=== PATIENT | female | born 1935 | race Caucasian/White ===

== ENCOUNTER 2016-08-23 07:13 | Day surgery (SDC) | payer MEDICARE, BC ==
[~2016-08-23] VITALS: Ht 170.2 cm; Wt 80.6 kg
--- NOTE | ~2016-08-23 | OR ---
PATIENT'S NAME: FE PEREZ [facility] AGE: 80 Y [address] ROOM: [address] [address] [place] [facility] [place]: 08/23/2016 OR/Procedure Report DISCHARGE DATE: 08/24/2016 FAMILY PHYSICIAN: Lisa Mcfarland MD ATTENDING PHYSICIAN: Stephan Mayo SURGEON: Stephan Mayo MD MILLED LUMBER GRADER: Vandana Altamirano PA-C. DATE OF PROCEDURE: 08/23/2016 PREOPERATIVE DIAGNOSIS: Infiltrating ductal carcinoma of left breast, status post right breast lumpectomy. POSTOPERATIVE DIAGNOSES: 1. Infiltrating ductal carcinoma of right breast. 2. Negative left axillary sentinel lymph node on touch prep. PROCEDURES PERFORMED: 1. 5 mL Lymphazurin blue dye injection in left periareolar location for lymphoscintigraphy. 2. Left axillary sentinel lymph node biopsy. 3. Left simple mastectomy. ANESTHESIA: General. ESTIMATED BLOOD LOSS: 100 mL. SPECIMEN: Left axillary sentinel lymph node in left breast. INDICATION: The patient is a pleasant 80-year-old young lady, who had a 2 cm mass developed in the upper inner quadrant of her left breast. Dr. Mcfarland performed excisional biopsy. Margins were grossly negative. Infiltrating ductal carcinoma was noted and the patient chose after surgical discussion to undergo breast removal. We discussed the procedure, benefits, and risks including that of sentinel lymph node possible axillary dissection. DESCRIPTION OF PROCEDURE: After informed consent, the patient was taken to the operating room. After general endotracheal anesthesia, the patient's left breast periareolar location was prepped with alcohol and 5 mL Lymphazurin blue dye was injected for lymphoscintigraphy. We then prepped and draped the left breast and axilla, anterior chest into the sterile field. Due to the incision was in the upper outer quadrant, we had a marked elliptical incision centered to include this previous incision within our specimen. We created our superior skin flap up to the the breast tissue from the subcutaneous tissue all the way up to the infraclavicular region. We then went lateral into the left axilla, used the NeoGamma detector and identified a PATIENT'S NAME: FE PEREZ [facility] AGE: 80 Y [address] [address] [place] [facility] [place]: 08/23/2016 OR/Procedure Report DISCHARGE DATE: 08/24/2016 FAMILY PHYSICIAN: Lisa Mcfarland MD ATTENDING PHYSICIAN: Stephan Mayo radioactive hot area. We sharply dissected down and identified blue lymphatic lymph channel leading to a blue lymphatic lymph node. We next removed the sentinel lymph node and checked counts compared to residual background counts and they were less than 10%. There was no other gross adenopathy palpable. Next, we proceeded with a completion left mastectomy. We created inferior skin line and dissected the subcutaneous tissue down to the inframammary fold. We then took the breast off the pectoralis fascia. We did not encounter any communication of the previous biopsy cavity to the fascia. We took it off the pectoralis fascia all the way to the pectoralis major and minor muscle. We took out the tail of Matt in block. The wound was irrigated and electrocautery 3-0 silks used to obtain hemostasis. We placed a Migue-Benitez drain underneath the skin flaps and closed the subcutaneous tissue with 3-0 Vicryl and skin closed with subcuticular 4-0 Vicryl. Steri-Strips and sterile dressings applied. The patient tolerated the procedure well and transferred to recovery in stable condition. STEPHAN MAYO MD WTS/modl /[id number] d: 09/04/16 1311 t: 09/25/16 1001, OPERATIVE SUMMARY
[~2016-08-23 07:13] MED LIST: ASPIRIN LO-DOSE81 MG PO; HYZAAR 50-12.51 EACH PO; LUTEIN6 M1 PO; THERA-VITE W/ B1 TAB PO; VOLTAREN75 MG PO
[2016-08-23 07:50] LABS: BASOPHIL % 0.6 %; EOSINOPHIL # 0.2 K/uL (0.0-0.5); EOSINOPHIL % 4.1 %; HEMATOCRIT 45.1 % (33.0-46.0); HEMOGLOBIN 14.8 g/dL (10.0-15.0); IMMATURE GRANULOCYTE % 0.2 %; LYMPHOCYTE # 1.7 K/uL (0.8-4.0); LYMPHOCYTE % 31.4 %; MCH 29.2 pg (27.0-34.0); MCHC 32.8 gm/dL (32.0-36.5); MCV 89.1 fl (83.0-98.0); MONOCYTE # 0.6 K/uL (0.0-1.0); MONOCYTE % 10.2 %; MPV 10.3 fl (9.4-12.4); NEUTROPHIL # (ANC) 2.9 K/uL (1.8-7.8); NEUTROPHIL % 53.5 %; NRBC % 0 /100WBC (0-0.00); PLATELET COUNT 166 K/uL (150-450); RBC 5.06 M/uL (3.50-5.50); RDW-CV 13.3 % (11.9-14.6); WBC 5.4 K/uL (4.0-11.0)
--- NOTE | 2016-08-23 16:57 | NUR ---
Significant Event: PT ARRIVED FROM PACU AT 1350. L SIMPLE MASTECTOMY, L AXILLARY SENTINAL LYMPH NODE. LIMB ALERT TO L ARM. INCISION TO L CHEST, DRESSING D/I. ROSE DRAIN- 30ML OUTPUT. POST OP VSS, TITRATED TO ROOM AIR. PT RATING PAIN 4/10 AND TOLERABLE. 1 TAB NORCO GAVE AT 1634. TOLERATED CLEAR LIQUDS, DIET ADVANCED TO REGULAR. IV SALINE LOCKED. PT AMBULATED IN WRAY WITH SBA X3 LAPS. IS AT BEDSIDE. Follow up: CONTINUE TO MONITOR
--- NOTE | 2016-08-24 02:50 | NUR ---
SIGNIFICANT EVENT: Patient is alert & oriented. VSS on RA. 45 mL out of ROSE. Bandages to L) chest remain C/D/I. BP: 126 to 167 over 58 to 72, P: 65 to 74, RR 14 to 20, 96 to 97 Sats onRA. SBA to BR/ambulate in varela. States pain in surgical sites to be tolerable, refuses pain meds. Regular diet - ate all dinner. Pleasant and cooperative with cares.
[2016-08-24 05:36] LABS: BASOPHIL % 0.2 %; EOSINOPHIL % 0.1 %; HEMATOCRIT 39.1 % (33.0-46.0); IMMATURE GRANULOCYTE % 0.3 %; LYMPHOCYTE # 1.7 K/uL (0.8-4.0); LYMPHOCYTE % 17.4 %; MCH 29.2 pg (27.0-34.0); MCHC 33.2 gm/dL (32.0-36.5); MCV 87.9 fl (83.0-98.0); MONOCYTE # 0.9 K/uL (0.0-1.0); MONOCYTE % 8.8 %; MPV 10.4 fl (9.4-12.4); NEUTROPHIL % 73.2 %; NRBC % 0 /100WBC (0-0.00); PLATELET COUNT 160 K/uL (150-450); RBC 4.45 M/uL (3.50-5.50); RDW-CV 13.2 % (11.9-14.6); WBC 9.6 K/uL (4.0-11.0)
[2016-08-24 05:49] LABS: ANION GAP 13.9 (10.0-19.0); BLOOD UREA NITROGEN 12 mg/dL (6-24); CALCIUM 8.5 mg/dL (8.5-10.5); CHLORIDE 108 mMol/L (96-110); CO2 24 mMol/L (22-32); CREATININE 0.7 mg/dL (0.5-1.1); ESTIMATED GFR (MDRD EQUATION) > 60; POTASSIUM 3.9 mMol/L (3.7-5.1); SODIUM 142 mMol/L (135-145)
[2016-08-24] MEDS ORDERED: NORCO 5-325 TA1 EACH PO (12:08)
--- NOTE | 2016-08-24 12:14 | NUR ---
D: Orders received for the patient to go home today with family. I: Dismissal instructions were prepared and reviewed with the patient and her virtually. The following information was discussed including Krames teaching sheets provided: [place], Discharge instructions for caring for your incisions, Migue Benitez Drainage tube-discharge instructions, Mastectomy, mastectomy follow up care, and Preventing DVT. Reviewed follow up appointments and new prescriptions. R: The patient and her both verbalized understanding of the dismissal education at the time of teaching with no further questions. P: The above information was shared with the charge nurse, primary nurse and the nurses aide that the dismissal education was completed. The patient is ready for discharge to the front door via wheel chair by nursing staff.
--- NOTE | 2016-08-24 13:34 | NUR ---
Met patient and spouse in her room as she was waiting to be discharged. Introduced myself and the role of the CM department. Patient is dressed and ready for discharge to home. She has not needs at this time and denies any questions or concerns. Wished them well.
--- NOTE | 2016-08-24 13:40 | NUR ---
I have examined the student charting and find it acceptable. CLEMENTE Call
== END 2016-08-24 12:57 | disposition disaster alternative care site (69) ==
LOC: GSDC 07:13 → GMSU 07:13 → GSDC 07:30 → GMSU 13:50 → GSDC 16:00
PROVIDERS: Surgery
PROC: 0HBU0ZZ Excision of Left Breast, Open Approach (ICD-10-PCS; principal; 2016-08-23)
PROC: 07B60ZX Excision of Left Axillary Lymphatic, Open Approach, Diagnostic (ICD-10-PCS; 2016-08-23)
DX: N61.0 Mastitis without abscess (principal); R92.0 Mammographic microcalcification found on diagnostic imaging of breast; I10 Essential (primary) hypertension; K21.9 Gastro-esophageal reflux disease without esophagitis; E78.00 Pure hypercholesterolemia, unspecified; M19.90 Unspecified osteoarthritis, unspecified site; Z85.3 Personal history of malignant neoplasm of breast; Z88.0 Allergy status to penicillin
CPT/HCPCS: A9520; J0690; J1100; J2001; J2250; J2405; J7120; Q9968